=== PATIENT | male | born 1960 | race Caucasian/White ===

== ENCOUNTER → 2017-03-22 | Outpatient (CLI) | payer OTHER ==
[~2017-03-22] MED LIST: HYDROCODONE BIT1 T11 PO; MOTRIN800 MG PO; NAPROSYN500 MG PO; NORCO 325 MG-51 TAB PO; PEN-VEE K500 MG PO; PERCOCET 325 MG1 TA3 PO; PERIDEX 480 ML480 ML PO; SOMA350 MG PO
== END | disposition home or self-care (01) ==
LOC: RAD 12:01
DX: M47.892 Other spondylosis, cervical region (principal); M48.02 Spinal stenosis, cervical region; M25.511 Pain in right shoulder; W19.XXXA Unspecified fall, initial encounter; Z87.81 Personal history of (healed) traumatic fracture

== ENCOUNTER 2019-07-03 14:42 | Emergency (ER) | payer OTHER ==
[~2019-07-03] VITALS: Ht 172.7 cm; Wt 65.8 kg
== END 2019-07-03 15:26 | disposition home or self-care (01) ==
LOC: ED 14:42
DX: S05.01XA Injury of conjunctiva and corneal abrasion without foreign body, right eye, initial encounter (principal); Z79.899 Other long term (current) drug therapy; X58.XXXA Exposure to other specified factors, initial encounter; Y93.89 Activity, other specified; Y92.89 Other specified places as the place of occurrence of the external cause; Y99.8 Other external cause status

== ENCOUNTER 2020-07-23 13:27 | Emergency (ER) | payer MEDICARE ==
[~2020-07-23] VITALS: Ht 172.7 cm; Wt 68.9 kg
[2020-07-23] MEDS ORDERED: Tobrex Ophth S2.5 ML OPH (14:17)
[2020-07-23] MEDS ORDERED: IBUPROFEN600 MG PO (14:17)
== END 2020-07-23 14:30 | disposition home or self-care (01) ==
LOC: ED 13:27
DX: S05.01XA Injury of conjunctiva and corneal abrasion without foreign body, right eye, initial encounter (principal); Z79.899 Other long term (current) drug therapy; W22.8XXA Striking against or struck by other objects, initial encounter; Y93.89 Activity, other specified; Y92.89 Other specified places as the place of occurrence of the external cause; Y99.8 Other external cause status

== ENCOUNTER 2024-12-31 09:36 | Emergency (ER) | payer OTHER ==
[~2024-12-31] VITALS: Ht 172.7 cm; Wt 65.8 kg
[~2024-12-31 09:36] MED LIST changes: +IBUPROFEN600 MG PO; +Tobrex Ophth S2.5 ML OPH
[2024-12-31] MEDS ORDERED: SODIUM CHLORIDE 0.9% 1,000 ML IV ONE (10:15)
[2024-12-31] MEDS ORDERED: Ketorolac Tromethamine 15 MG/ML VIAL IV ONE (10:15)
[2024-12-31] MEDS ORDERED: Ondansetron Hydrochloride 4 MG/2 ML VIAL IV ONE ×2 (10:15→12:30)
[2024-12-31] MEDS ORDERED: IOHEXOL 300 MG/ML 100 ML VIAL IV ONE (10:15)
[2024-12-31 10:26] LABS: BASO % 0.1 % (0.0-1.0); HEMATOCRIT 44.1 % (42.0-52.0); MEAN CELL VOLUME 89.6 fl (80.0-94.0); MEAN CORPUSCULAR HGB 30.7 pg (27.0-31.0); MEAN CORPUSCULAR HGB CONC 34.2 g/dl (33.0-37.0); MEAN PLATELET VOLUME 9.5 fl (9.6-12.3); MONO # 1.3 10*3/uL (0.1-1.0); MONO % 8.9 % (3.0-9.0); NEUT # 11.6 10*3/uL (2.3-7.9); NEUT % 81.1 % (47.0-73.0); PLATELET COUNT AUTOMATED 329 10*3/uL (130-400); RED BLOOD COUNT 4.92 10*6/uL (4.50-5.90); WHITE BLOOD COUNT 14.3 10*3/uL (4.8-10.8)
[2024-12-31 10:53] LABS: ALKALINE PHOSPHATASE 140 U/L (46-116); BUN 18 mg/dl (9-23); CHLORIDE 101 mmol/L (98-107); LIPASE 23 U/L (12-53); POTASSIUM 3.8 mmol/L (3.4-5.1); SGPT/ALT 22 U/L (5-49); TOTAL PROTEIN 7.9 gm/dL (6.0-8.0)
[2024-12-31] MEDS ORDERED: SERTRALINE HYD100 MG PO (11:56)
[2024-12-31] MEDS ORDERED: OXYCODONE HCL5 MG PO (11:58)
[2024-12-31] MEDS ORDERED: PERCOCET 7.5-31 EACH PO (11:59)
[2024-12-31 14:52] LABS: BILIRUBIN Negative (Negative); BLOOD Trace-Lysed (Negative); CLARITY Clear (Clear); COLOR Yellow (Yellow); GLUCOSE Negative (Negative); KETONE 1+ (Negative); LEUKO ESTERASE Negative (Negative); NITRITE Negative (Negative); PH 7.5 (4.5-8.0); SPECIFIC GRAVITY >= 1.030 (1.001-1.030); UROBILINOGEN 0.2 E.U./dl (0.0-1.0)
[2024-12-31 15:00] LABS: BACTERIA TRACE
[2024-12-31] MEDS ORDERED: Promethazine Hydrochloride 25 MG TAB PO ONE (15:35)
[2024-12-31] MEDS ORDERED: Phenergan25 MG PO (15:55)
== END 2024-12-31 16:02 | disposition home or self-care (01) ==
LOC: ED 09:36
PROVIDERS: Nurse Practitioner Family
DX: A08.4 Viral intestinal infection, unspecified (principal); K43.9 Ventral hernia without obstruction or gangrene; R11.2 Nausea with vomiting, unspecified; R19.7 Diarrhea, unspecified